=== PATIENT | female | born 1945 | race African-American/Black ===

== ENCOUNTER → 2017-05-05 | Outpatient (CLI) | payer MEDICARE, MEDICAID | END | disposition home or self-care (01) | LOC: MAMMO 08:35 | PROVIDERS: ATTEND Internal Medicine Hematology & Oncology | DX: M81.0 Age-related osteoporosis without current pathological fracture (principal); Z85.3 Personal history of malignant neoplasm of breast; Z85.89 Personal history of malignant neoplasm of other organs and systems | CPT/HCPCS: 77080; G0206 ==

== ENCOUNTER → 2017-08-05 | Outpatient (CLI) | payer MEDICARE, MEDICAID | END | disposition home or self-care (01) | LOC: EDBD → MRI 09:37 | PROVIDERS: ATTEND Internal Medicine Cardiovascular Disease | DX: M54.31 Sciatica, right side (principal); M48.061 Spinal stenosis, lumbar region without neurogenic claudication; M43.16 Spondylolisthesis, lumbar region | CPT/HCPCS: 72148; 72195 ==

== ENCOUNTER → 2017-08-13 | Outpatient (CLI) | payer MEDICARE, MEDICAID ==
[~2017-08-13] MED LIST: GADOBENATE DIMEGLUMINE 529 MG/ML 10ML IV ONE
== END | disposition home or self-care (01) ==
LOC: MRI 08:42
PROVIDERS: ATTEND Neurological Surgery
DX: M54.2 Cervicalgia (principal); M51.36 Other intervertebral disc degeneration, lumbar region
CPT/HCPCS: 72149; 72156; A9577

== ENCOUNTER → 2017-08-31 | Outpatient (CLI) | payer MEDICARE, MEDICAID ==
[~2017-08-31] MED LIST changes: +BARIUM SULFATE 450ML ORAL SUSP ONE; -GADOBENATE DIMEGLUMINE 529 MG/ML 10ML IV ONE; +IBUP-2030 PO; +IOHEXOL-300 100 ML BOTTLE ONE
== END | disposition home or self-care (01) ==
LOC: NM 08:03
PROVIDERS: ATTEND Internal Medicine Hematology & Oncology
DX: C79.51 Secondary malignant neoplasm of bone (principal); J90 Pleural effusion, not elsewhere classified; E04.2 Nontoxic multinodular goiter; N28.1 Cyst of kidney, acquired; C50.919 Malignant neoplasm of unspecified site of unspecified female breast; Z90.710 Acquired absence of both cervix and uterus; Z90.49 Acquired absence of other specified parts of digestive tract
CPT/HCPCS: 71260; 74177; Q9967

== ENCOUNTER → 2017-09-03 | Outpatient (CLI) | payer MEDICARE, MEDICAID | END | disposition home or self-care (01) | LOC: NM 07:29 | PROVIDERS: ATTEND Internal Medicine Hematology & Oncology | DX: C50.911 Malignant neoplasm of unspecified site of right female breast (principal) | CPT/HCPCS: 78306; A9503 ==

== ENCOUNTER 2017-09-30 14:41 | Inpatient (IN) | payer MEDICARE, MEDICAID ==
[~2017-09-30] VITALS: Ht 154.9 cm; Wt 116.1 kg
[2017-09-30] MEDS: ENOXAPARIN 30MG/0.3ML SYR SUBCUT SCH (05:00)
[2017-09-30 16:21] LABS: HEMOGLOBIN. 9.5 g/dL (12.0-16.0); MEAN CORPUSCULAR HEMOGLOBIN 26.3 pg (28.0-32.0); MEAN CORPUSCULAR VOLUME 80.5 fL (81.0-99.0); MEAN PLATELET VOLUME 7.2 fl (7.4-10.4); PLATELET 262 x1000/uL (130-400); RED CELL DISTRIBUTION WIDTH 16.8 % (11.6-14.6)
[2017-09-30 16:27] LABS: INR 1.3; PARTIAL THROMBOPLASTIN TIME 33.1 sec (23.4-31.0); PROTHROMBIN TIME 13.3 sec (9.4-11.6)
[2017-09-30 16:30] LABS: CHLORIDE 94 mEq/L (98-107)
[2017-09-30 16:38] LABS: TROPONIN I <0.01 ng/mL ng/mL (0.00-0.04)
[2017-09-30 17:12] LABS: PLATELET ESTIMATE NORMAL
[2017-09-30] MEDS ORDERED: ONDANSETRON HCL 4MG/2ML VIAL IV STA (18:24)
[2017-09-30] MEDS ORDERED: MORPHINE SULFATE 4 MG/ML CPJ (NOT FOR IM USE) IV STA (18:24)
[2017-09-30] MEDS ORDERED: SODIUM CHLORIDE 0.9% 1,000 ML IV ONE ×3 (18:24→21:52)
[2017-09-30] MEDS ORDERED: KCL 20MEQ/100ML PREMIX 100 ML IV ONE (18:45)
[2017-09-30] MEDS ORDERED: SODIUM CHLORIDE 0.9% 1,000 ML IV SCH (22:18)
[2017-09-30] MEDS ORDERED: LORAZEPAM 0.5MG TABLET PO PRN (22:30)
[2017-09-30] MEDS ORDERED: CLONIDINE 0.1MG TABLET PO PRN (22:30)
[2017-09-30] MEDS ORDERED: MAGNESIUM/ALUMINUM HYDROXIDE/SIMETHICONE 30ML UDC PO PRN (22:30)
[2017-09-30] MEDS ORDERED: TRAMADOL 50MG TABLET PO PRN (22:30)
[2017-09-30] MEDS ORDERED: LEVOFLOXACIN 500MG PREMIX 100 ML IV SCH (22:30)
[2017-09-30] MEDS ORDERED: MORPHINE SULFATE 2 MG/ML CPJ (NOT FOR IM USE) IV PRN (22:30)
[2017-09-30] MEDS ORDERED: DIPHENHYDRAMINE 50MG/ML VIAL IV PRN (22:30)
[2017-09-30] MEDS ORDERED: ACETAMINOPHEN 325MG TABLET PO PRN (22:30)
[2017-09-30] MEDS ORDERED: POTASSIUM CHLORIDE 20MEQ TABLET SR PO NR (22:30)
[2017-09-30] MEDS ORDERED: DOCUSATE SODIUM 100MG CAPSULE PO PRN (22:30)
[2017-09-30] MEDS ORDERED: NA PHOS,M-B/NA PHOS,DI-BA ENEMA 118ML PR PRN (22:30)
[2017-09-30] MEDS ORDERED: GUAIFENESIN 200MG/10ML SUGAR FREE UDC PO PRN (22:30)
[2017-09-30] MEDS ORDERED: IPRATROPIUM/ALBUTEROL 0.5-3(2.5)MG/3ML NEB INH PRN (22:30)
[2017-09-30 23:56] LABS: TOTAL IRON BINDING CAPACITY 185 ug/dL (250-450)
[2017-10-01 00:42] LABS: CLARITY URINE TURBID (CLEAR); COLOR URINE DARK YELLOW (YELLOW); KETONES URINE TRACE (NEGATIVE); LEUKOCYTE ESTERASE URINE 3+ (NEGATIVE); NITRITE URINE NEGATIVE (NEGATIVE); OCCULT BLOOD URINE 1+ (NEGATIVE); PROTEIN URINE 1+ (NEGATIVE); SPECIFIC GRAVITY URINE 1.018 (1.005-1.030); UROBILINOGEN URINE 0.2 E.U./dL (0.2-1.0)
[2017-10-01] MEDS ORDERED: SODIUM CHLORIDE 0.9% 1,000 ML IV ONE (01:55)
[2017-10-01] MEDS ORDERED: LEVOFLOXACIN 500MG PREMIX 100 ML IV NR (02:00)
[2017-10-01] MEDS ORDERED: FILGRASTIM-TBO 300 MCG/0.5 ML SYRINGE SQ NR (03:00)
[2017-10-01] MEDS: ENOXAPARIN 30MG/0.3ML SYR SUBCUT SCH (05:00)
[2017-10-01] MEDS ORDERED: METRONIDAZOLE 500 MG PREMIX 100 ML IV SCH ×2 (06:00→07:08)
[2017-10-01 06:13] LABS: CREATINE KINASE 27 IU/L (26-192); CREATINE KINASE MB FRACTION < 0.5 ng/mL (0.5-3.6); TROPONIN I <0.01 ng/mL ng/mL (0.00-0.04)
[2017-10-01] MEDS ORDERED: PIPERACILLIN/TAZOBACTAM 3.375GM/50ML PREMIX IV NR (07:10)
[2017-10-01 07:11] LABS: VITAMIN B12 SERUM >2000 pg/mL pg/mL (211-911)
[2017-10-01 09:00] VITALS: BP 92/42
[2017-10-01] MEDS ORDERED: CEFTRIAXONE 1 G PREMIX 50 ML IV SCH (09:00)
[2017-10-01] MEDS: FAMOTIDINE 20MG/2ML VIAL IV SCH (10:16)
[2017-10-01 10:42] VITALS: BP 92/42
[2017-10-01] MEDS: CEFTRIAXONE 1 G PREMIX 50 ML IV SCH (11:51)
[2017-10-01 12:00] VITALS: BP 104/44
[2017-10-01] MEDS ORDERED: IBUP-2030 PO (12:48)
[2017-10-01 16:00] VITALS: BP 96/47
[2017-10-01 16:55] LABS: HEMATOCRIT. 26.3 % (36.0-48.0); HEMOGLOBIN. 8.3 g/dL (12.0-16.0); MEAN CORPUSCULAR HEMOGLOBIN 26.1 pg (28.0-32.0); MEAN CORPUSCULAR VOLUME 82.3 fL (81.0-99.0); MEAN PLATELET VOLUME 7.4 fl (7.4-10.4); PLATELET 218 x1000/uL (130-400); RED CELL DISTRIBUTION WIDTH 16.8 % (11.6-14.6)
[2017-10-01 17:33] LABS: CHLORIDE 102 mEq/L (98-107)
[2017-10-01 17:35] LABS: CREATINE KINASE 28 IU/L (26-192); CREATINE KINASE MB FRACTION < 0.5 ng/mL (0.5-3.6); TROPONIN I < 0.20 ng/mL (0.00-0.04)
[2017-10-01 17:48] LABS: PLATELET ESTIMATE NORMAL
[2017-10-01] MEDS: METRONIDAZOLE 500 MG PREMIX 100 ML IV SCH (17:58)
[2017-10-01] MEDS ORDERED: POTASSIUM CHLORIDE 20MEQ/PACKET PO NR (18:30)
[2017-10-01] MEDS ORDERED: KCL 20MEQ/100ML PREMIX 100 ML IV NR (20:00)
[2017-10-01 20:21] VITALS: BP 103/49
[2017-10-01] MEDS: FILGRASTIM-TBO 300 MCG/0.5 ML SYRINGE SQ SCH (20:40)
[2017-10-01] MEDS ORDERED: ZOLPIDEM TARTRATE 5MG TABLET PO PRN (21:00)
[2017-10-01] MEDS ORDERED: MORPHINE SULFATE 4 MG/ML CPJ (NOT FOR IM USE) IV PRN (23:13)
[2017-10-01] MEDS: SODIUM CHL 0.9% + KCL 20MEQ/L 1,000 ML IV SCH (23:20)
[2017-10-02 00:06] VITALS: BP 104/52
[2017-10-02] MEDS: METRONIDAZOLE 500 MG PREMIX 100 ML IV SCH ×3 (02:38→18:58)
[2017-10-02 04:50] VITALS: BP 103/56
[2017-10-02 08:00] VITALS: BP 100/53
[2017-10-02] MEDS ORDERED: FILGRASTIM 300 MCG/ML VIAL SUBCUT SCH (09:00)
[2017-10-02] MEDS: FAMOTIDINE 20MG/2ML VIAL IV SCH (09:09)
[2017-10-02] MEDS: ENOXAPARIN 40MG/0.4ML SYR SUBCUT SCH (09:09)
[2017-10-02] MEDS: ONDANSETRON HCL 4MG/2ML VIAL IV PRN (10:43)
[2017-10-02] MEDS: CEFTRIAXONE 1 G PREMIX 50 ML IV SCH (10:47)
[2017-10-02 12:00] VITALS: BP 100/54
[2017-10-02 13:19] LABS: HEMATOCRIT. 28.1 % (36.0-48.0); HEMOGLOBIN. 9.1 g/dL (12.0-16.0); MEAN CORPUSCULAR HEMOGLOBIN 26.4 pg (28.0-32.0); MEAN CORPUSCULAR VOLUME 81.5 fL (81.0-99.0); MEAN PLATELET VOLUME 7.2 fl (7.4-10.4); PLATELET 206 x1000/uL (130-400); RED BLOOD CELL COUNT 3.45 mill/uL (4.2-5.4); RED CELL DISTRIBUTION WIDTH 16.9 % (11.6-14.6)
[2017-10-02 13:29] LABS: CHLORIDE 106 mEq/L (98-107)
[2017-10-02] MEDS ORDERED: METOCLOPRAMIDE HCL 10MG/2ML VIAL IV NR (14:15)
[2017-10-02] MEDS ORDERED: POTASSIUM CHLORIDE 20MEQ/PACKET PO NR (14:15)
[2017-10-02 14:24] LABS: PLATELET ESTIMATE NORMAL
[2017-10-02] MEDS: SODIUM CHL 0.9% + KCL 20MEQ/L 1,000 ML IV SCH ×2 (15:00→21:39)
[2017-10-02 16:00] VITALS: BP 110/50
[2017-10-02 20:41] VITALS: BP 109/49
[2017-10-02] MEDS: FILGRASTIM-TBO 300 MCG/0.5 ML SYRINGE SQ SCH (21:00)
[2017-10-02] MEDS: LEVOFLOXACIN 250MG PREMIX 50 ML IV SCH (21:39)
[2017-10-02] MEDS ORDERED: LEVOFLOXACIN 250MG PREMIX 50 ML IV SCH (22:00)
[2017-10-03] VITALS (7 sets, daily range): BP systolic 113–153; BP diastolic 58–82
[2017-10-03] MEDS: METRONIDAZOLE 500 MG PREMIX 100 ML IV SCH ×3 (03:55→18:38)
[2017-10-03] MEDS: SODIUM CHL 0.9% + KCL 20MEQ/L 1,000 ML IV SCH ×2 (05:21→18:38)
[2017-10-03] MEDS: FAMOTIDINE 20MG/2ML VIAL IV SCH (08:42)
[2017-10-03] MEDS: ENOXAPARIN 40MG/0.4ML SYR SUBCUT SCH (08:43)
[2017-10-03] MEDS: CEFTRIAXONE 1 G PREMIX 50 ML IV SCH (11:01)
[2017-10-03 18:17] LABS: HEMATOCRIT. 26.5 % (36.0-48.0); HEMOGLOBIN. 8.5 g/dL (12.0-16.0); MEAN CORPUSCULAR HEMOGLOBIN 26.3 pg (28.0-32.0); MEAN CORPUSCULAR VOLUME 81.5 fL (81.0-99.0); MEAN PLATELET VOLUME 7.4 fl (7.4-10.4); PLATELET 149 x1000/uL (130-400); RED BLOOD CELL COUNT 3.25 mill/uL (4.2-5.4); RED CELL DISTRIBUTION WIDTH 17.5 % (11.6-14.6)
[2017-10-03 20:21] LABS: PLATELET ESTIMATE NORMAL
[2017-10-03] MEDS: FILGRASTIM-TBO 300 MCG/0.5 ML SYRINGE SQ SCH (20:31)
[2017-10-03] MEDS: LEVOFLOXACIN 250MG PREMIX 50 ML IV SCH (20:31)
[2017-10-03] MEDS: SILVER SULFADIAZINE 1% CREAM 50GM TOP SCH (21:00)
[2017-10-04 00:49] VITALS: BP 145/49
[2017-10-04] MEDS: SODIUM CHL 0.9% + KCL 20MEQ/L 1,000 ML IV SCH ×3 (02:03→20:20)
[2017-10-04] MEDS: METRONIDAZOLE 500 MG PREMIX 100 ML IV SCH ×3 (02:04→17:30)
[2017-10-04 04:50] VITALS: BP 146/80
[2017-10-04 08:00] VITALS: BP 132/75
[2017-10-04] MEDS: FAMOTIDINE 20MG/2ML VIAL IV SCH (08:30)
[2017-10-04] MEDS: ENOXAPARIN 40MG/0.4ML SYR SUBCUT SCH (08:32)
[2017-10-04 09:42] LABS: HEMATOCRIT. 28.3 % (36.0-48.0); MEAN CORPUSCULAR HEMOGLOBIN 26.3 pg (28.0-32.0); MEAN CORPUSCULAR VOLUME 83.1 fL (81.0-99.0); MEAN PLATELET VOLUME 7.3 fl (7.4-10.4); PLATELET 124 x1000/uL (130-400); RED BLOOD CELL COUNT 3.41 mill/uL (4.2-5.4); RED CELL DISTRIBUTION WIDTH 17.6 % (11.6-14.6)
[2017-10-04] MEDS: SILVER SULFADIAZINE 1% CREAM 50GM TOP SCH (09:42)
[2017-10-04 12:00] VITALS: BP 151/78
[2017-10-04] MEDS ORDERED: CEFAZOLIN 500 MG in DEXTROSE 5% WATER 50 ML IV SCH (12:00)
[2017-10-04] MEDS: CEFAZOLIN 500 MG in DEXTROSE 5% WATER 50 ML IV SCH (13:40)
[2017-10-04 16:00] VITALS: BP 159/91
[2017-10-04] MEDS ORDERED: METOCLOPRAMIDE HCL 10MG TABLET PO PRN (17:01)
[2017-10-04 17:49] LABS: PLATELET ESTIMATE DECREASED
[2017-10-04 20:00] VITALS: BP 144/90
[2017-10-04] MEDS: FILGRASTIM-TBO 300 MCG/0.5 ML SYRINGE SQ SCH (21:20)
[2017-10-05] VITALS: BP 119/79
[2017-10-05] MEDS: CEFAZOLIN 500 MG in DEXTROSE 5% WATER 50 ML IV SCH ×2 (01:30→12:45)
[2017-10-05] MEDS: METRONIDAZOLE 500 MG PREMIX 100 ML IV SCH ×2 (02:38→09:45)
[2017-10-05 04:00] VITALS: BP 110/52
[2017-10-05] MEDS: SODIUM CHL 0.9% + KCL 20MEQ/L 1,000 ML IV SCH (05:34)
[2017-10-05 08:00] VITALS: BP 163/84
[2017-10-05] MEDS: FAMOTIDINE 20MG/2ML VIAL IV SCH (08:49)
[2017-10-05] MEDS: ENOXAPARIN 40MG/0.4ML SYR SUBCUT SCH (08:52)
[2017-10-05] MEDS: SILVER SULFADIAZINE 1% CREAM 50GM TOP SCH (08:53)
[2017-10-05 12:00] VITALS: BP 117/62
[2017-10-05 13:43] VITALS: BP 120/65
[2017-10-05] MEDS: ONDANSETRON HCL 4MG/2ML VIAL IV PRN (14:17)
[2017-10-05] MEDS ORDERED: CEFAZOLIN 1000MG PREMIX 50 ML IV SCH (21:00)
== END 2017-10-05 15:50 | disposition home health service (06) | DRG 314 ==
LOC: ER 14:41 → 6WST 21:57 → EDBEDREQ 22:07 → SUPCPDRO 22:12 → ENRESERV 10-01 07:14
PROVIDERS: ADMIT Internal Medicine; ATTEND Internal Medicine
DX: I95.9 Hypotension, unspecified (principal); E43 Unspecified severe protein-calorie malnutrition; N17.9 Acute kidney failure, unspecified; D70.9 Neutropenia, unspecified; C79.51 Secondary malignant neoplasm of bone; E66.01 Morbid (severe) obesity due to excess calories; E83.51 Hypocalcemia; E87.1 Hypo-osmolality and hyponatremia; Z68.43 Body mass index [BMI] 50.0-59.9, adult; D64.9 Anemia, unspecified; R11.2 Nausea with vomiting, unspecified; E87.6 Hypokalemia; I10 Essential (primary) hypertension; L30.4 Erythema intertrigo; Z85.3 Personal history of malignant neoplasm of breast; Z92.3 Personal history of irradiation; Z90.710 Acquired absence of both cervix and uterus; Z99.3 Dependence on wheelchair; Z88.5 Allergy status to narcotic agent; Z90.10 Acquired absence of unspecified breast and nipple; Z92.21 Personal history of antineoplastic chemotherapy
CPT/HCPCS: 36415; 71045; 74176; 76770; 80048; 80053; 81003; 82550; 82553; 82607; 82746; 83036; 83540; 83550; 83605; 83735; 83880; 84484; 85025; 85610; 85730; 87040; 87077; 87086; 87186; 93005; 93970; 96361; 96365; 96375; 99285; A6261; J0690; J0696; J1442; J1650; J1956; J2270; J2405; J2543; J2765; J3480; J3490; J7030; J7060